=== PATIENT | female | born 1940 | race Caucasian/White ===

== ENCOUNTER 2017-03-28 18:16 | Emergency (ER) | payer MEDICARE, OTHER ==
--- NOTE | 2017-04-01 19:13 | ER ---
ADMIT: 03/28/2017 RM/LOC: ER [facility] MR#: [id number] [id number] [place] [address] Emergency Room Report SEX: F AGE: 76 : 1940 DATE: 03/28/2017 HISTORY OF PRESENT ILLNESS: The patient is a 76-year-old female, came to the ER with chief complaint of left anterior lower leg skin tear and laceration, allegedly the patient was at [employer], an object fell, which had sharp edges per the patient and hit the left anterior leg, the patient denies any fall or head trauma or loss of consciousness and was walking on the left lower extremity without difficulty since then. The patient states allegedly the wound had more than 20 to 30 bre of bleeding, which soaked 1.5 very small towel. The patient denies easy bruising. PHYSICAL EXAMINATION: VITAL SIGNS: In the ER, the patient is in no pain or distress. Vitals are normal. The patient is not tachycardic. HEAD AND NECK: There are no signs of trauma. CHEST: Clear bilaterally. HEART: Normal heart sounds. There is no tenderness in the abdomen. EXTREMITIES: Normal except for the 1.5 inch skin tear, superficial laceration with gaping, which is longitudinal on the anterior left leg, the wound was irrigated, and since the gaping was about 5 mm open, it was first got stapled with a Prolene 4.0 suture after anesthetizing with lidocaine 2% with epi, after that the rest of the skin margins were approximated and the wound was repaired with Steri-Strips. The patient's vaccination status is up-to-date. Meanwhile, the left leg x-ray did not show any acute changes or fractures or dislocations. The patient was reassured and was sent to home after dressing the wound with return precautions, wound care and follow up with the primary doctor as needed in 10 days for removal of the suture. Brian Burnett MD/ yuly JOB #: [id number] CC: Fer Harris MD, Attending Physician
== END 2017-03-28 20:39 | disposition home or self-care (01) ==
LOC: ER 18:16
PROC: 0HQLXZZ Repair Left Lower Leg Skin, External Approach (ICD-10-PCS; principal; 2017-03-28)
DX: S81.812A Laceration without foreign body, left lower leg, initial encounter (principal); Z23 Encounter for immunization; W22.8XXA Striking against or struck by other objects, initial encounter; Y92.22 Religious institution as the place of occurrence of the external cause